=== PATIENT | male | born 1985 | race Caucasian/White ===

== ENCOUNTER → 2023-11-20 20:00 | Outpatient (REF) | payer BC, SELFPAY | LOC: MRI 20:00 | PROVIDERS: ATTENDING PHYSICIAN Student in an Organized Health Care Education/Training Program; FAMILY PHYSICIAN Family Medicine | DX: M54.17 Radiculopathy, lumbosacral region (principal); M54.50 Low back pain, unspecified; M53.3 Sacrococcygeal disorders, not elsewhere classified | CPT/HCPCS: 72148 ==